=== PATIENT | female | born 1985 | race Caucasian/White ===

== ENCOUNTER 2018-05-13 21:45 | Emergency (ER) | payer OTHER ==
[~2018-05-13] VITALS: Ht 154.9 cm; Wt 67.5 kg
[~2018-05-13 21:45] MED LIST: IBUP-1542 PO
[2018-05-13 21:54] VITALS: Ht 154.9 cm; Wt 67.5 kg
[2018-05-14] MEDS ORDERED: ACETAMINOPHEN 500 MG TAB PO STA (02:55)
--- NOTE | 2018-05-14 02:59 | ERD ---
ER Documentation Chief Complaint Chief Complaint bib self, cc: left sided abd. pain x 1 hour HPI 33-year-old female presents with complaint of left-sided abdominal pain which occurred earlier today. So the episode lasted a short period of time and was 10 out of 10 in intensity and then self resolved. States that currently it is only 5 out of 10 in intensity. She is not taking any treatments. She is never had episodes like this before. She denies . Denies nausea, vomiting, diarrhea, dysuria, hematuria. Denies past medical history. Denies allergies. Denies medications. Denies surgeries. Denies alcohol, tobacco, drug use. Up to date on vaccines. ROS All systems reviewed and are negative except as per history of present illness. Medications Home Meds Active Scripts Cephalexin* (Keflex*) 500 Mg Capsule, 500 MG PO BID for UTI for 7 Days, CAP Prov:TANA MURPHY 05/14/18 Ibuprofen* (Motrin*) 600 Mg Tab, 600 MG PO Q6, #20 TAB Prov:AFSANEH RUBIN MD 01/06/15 Allergies Allergies: Coded Allergies: No Known Drug Allergy (Verified Allergy, Unknown, 07/06/08) PMhx/Soc History of Surgery: Yes (rt knee ) Anesthesia Reaction: No Hx Neurological Disorder: No Hx Respiratory Disorders: No Hx Cardiac Disorders: No Hx Psychiatric Problems: No Hx Miscellaneous Medical Probl: Yes (haital hernia ) Hx Alcohol Use: No Hx Substance Use: No Hx Tobacco Use: No FmHx Family History: No diabetes, No coronary disease, No other Physical Exam Vitals Vital Signs Date Temp Pulse Resp B/P (MAP) Pulse Ox O2 O2 Flow FiO2 Time Delivery Rate 05/14/18 97.5 72 18 114/78 98 Room Air 04:40 (90) 05/14/18 36.7 03:07 05/13/18 98.1 72 19 101/62 100 21:54 (75) Physical Exam Const: No acute distress Head: Atraumatic Eyes: Normal Conjunctiva ENT: Normal External Ears, Nose and Mouth. Neck: Full range of motion. No meningismus. Resp: Clear to auscultation bilaterally Cardio: Regular rate and rhythm, no murmurs Abd: Normal bowel sounds. No McBurney's tenderness. Negative Garcia's. Mild upper left quadrant pain. Skin: No petechiae or rashes Back: No midline or flank tenderness Ext: No cyanosis, or edema Neur: Awake and alert Psych: Normal Mood and Affect Results 24 hrs Laboratory Tests Test 05/14/18 03:16 05/14/18 03:20 Bedside Urine pH (LAB) 7.0 Bedside Urine Protein (LAB) 1+ Bedside Urine Glucose (UA) Negative Bedside Urine Ketones (LAB) Negative Bedside Urine Blood Trace-intact Bedside Urine Nitrite (LAB) Negative Bedside Urine Leukocyte Esterase (L 1+ POC Beta HCG, Qualitative NEGATIVE Current Medications Medications Dose Sig/Nydia Start Time Status Last (Trade) Ordered Route PRN Stop Time Admin Dose Reason Admin 1,000 mg ONCE STAT 05/14/18 DC 05/14/18 Acetaminophen PO 02:55 03:07 (Tylenol 05/14/18 02:58 Tab) Procedures/MDM DIAGNOSTIC IMAGING REPORT Patient: JLUIS BALDWIN : 1985 Age: 33 Sex: F MR #: [id number] DOS: 05/14/18 0255 Ordering MD: TANA MURPHY Location: [facility] Room/Bed: PROCEDURE: US Pelvis Non-OB Abdominal CLINICAL INDICATION: Pelvic pain. TECHNIQUE: Sonographic imaging of the pelvis was performed using transabdominal technique. Grayscale and color Doppler was utilized. COMPARISON: None. FINDINGS: UTERUS: Measures 9.1 x 4.3 x 4.9 cm without appreciated abnormality. ENDOMETRIAL STRIPE: 0.8 cm in thickness. RIGHT OVARY: Measures 3.6 x 2.3 x 2.6 cm without appreciated abnormality. Vascular flow is demonstrated. LEFT OVARY: Measures 3.6 x 2.0 x 2.6 cm without appreciated abnormality. Vascular flow is demonstrated. FREE FLUID: None. IMPRESSION: 1. Unremarkable pelvic ultrasound. RPTAT:HGST Eleni Melendez Physician Date Time Electronically viewed and signed by Eleni Melendez Physician on 05/14/2018 04:22 GT/ CC: TANA MURPHY [phone] 33-year-old female presents with complaint of left-sided abdominal pain which occurred earlier today. So the episode lasted a short period of time and was 10 out of 10 in intensity and then self resolved. States that currently it is only 5 out of 10 in intensity. She is not taking any treatments. She is never had episodes like this before. She denies . Denies nausea, vomiting, diarrhea, dysuria, hematuria. Denies past medical history. Denies allergies. Denies medications. Denies surgeries. Denies alcohol, tobacco, drug use. Up to date on vaccines. Ultrasound was ordered to rule out torsion and tubo-ovarian abscess, results within normal limits. UA was positive for UTI. Patient given Rx for keflex. I have low suspicion for appendicitis due to patient history and exam, including normal abdominal exam, lack of McBurney's point tenderness stands for medical decision-making. I have low suspicion for volvulus or obstruction due patient history and exam, including lack of history of biliary emesis and normal physical exam. I have low suspicion of invasive diarrhea due to patient history and exam, including lack of hematochezia. I have low suspicion for dehydration due to moist and pink mucous membranes, [ and normal cap refill. I have low suspicion of DKA based on patient history and exam. I have low suspicion for adrenal crisis, AAA, mesenteric ischemia, pyelonephritis, cholecystitis, aortic dissection, ectopic, [place], pneumonia, acute pancreatitis, PID, or other emergent causes based on patient history and exam Based on these findings I do not feel that additional labs, imaging. or antibiotics are necessary. Patient was discharged with strict ER precautions. Patient was recommended to follow-up with PMD. All questions answered at discharge. Departure Diagnosis: Primary Impression: UTI (urinary tract infection) Urinary tract infection type: site unspecified Hematuria presence: without hematuria Qualified Codes: N39.0 - Urinary tract infection, site not specified Condition: TANA Vega May 14, 2018 02:59
[2018-05-14] MEDS ORDERED: CEPH-443 PO (04:28)
[2018-05-14 04:40] VITALS: BP 114/78; PULSE 72; RESP 18
== END 2018-05-14 04:41 | disposition home or self-care (01) ==
LOC: FTE 21:45
DX: N39.0 Urinary tract infection, site not specified (principal); R10.2 Pelvic and perineal pain
CPT/HCPCS: 76856; 81003; 81025; Z7502; Z7610